=== PATIENT | female | born 1980 | race Caucasian/White ===

== ENCOUNTER 2022-12-31 08:50 | Outpatient (CLI) | payer OTHER | END 2022-12-31 09:06 | disposition home or self-care (01) | LOC: MAMO-SONO 08:50 | DX: R10.2 Pelvic and perineal pain (principal); N64.4 Mastodynia; R92.8 Other abnormal and inconclusive findings on diagnostic imaging of breast ==

== ENCOUNTER 2024-12-15 13:04 | Outpatient (CLI) | payer OTHER | END 2024-12-15 13:11 | disposition home or self-care (01) | LOC: MAMO-SONO 13:04 | DX: R92.30 Dense breasts, unspecified (principal); Z12.31 Encounter for screening mammogram for malignant neoplasm of breast ==